=== PATIENT | female | born 1980 | race Caucasian/White ===

== ENCOUNTER 2023-12-18 05:25 | Emergency (ER) | payer MEDICAID, OTHER ==
[~2023-12-18] VITALS: Ht 157.5 cm; Wt 59.0 kg
[2023-12-18 05:30] VITALS: TEMP 98
[2023-12-18 06:13] VITALS: PULSE 91; RESP 15; O2SAT 99
[2023-12-18] MEDS: IPRATROPIUM BROMIDE (0.02%) 0.5MG/2.5ML NEB HHN STA (06:13)
[2023-12-18] MEDS: ALBUTEROL (0.083%) 2.5MG/3ML NEB HHN STA (06:13)
[2023-12-18] MEDS: METHYLPREDNISOLONE SOD SUCC 125MG/2ML (ACT-O-VIAL) IV STA (06:33)
[2023-12-18] MEDS: MAGNESIUM 2 G PREMIX 50 ML IV STA (06:33)
[2023-12-18 08:30] VITALS: BP 108/66; PULSE 92; RESP 18
[2023-12-18] MEDS ORDERED: P50 PO (08:45)
[2023-12-18] MEDS ORDERED: ALBU18HF2 IH (08:45)
[2023-12-18] MEDS ORDERED: ALBU05 NEB (08:45)
[2023-12-18] MEDS: KETOROLAC 30MG/ML VIAL IV ONE (09:01)
== END 2023-12-18 09:10 | disposition home or self-care (01) ==
LOC: ER 05:25
DX: J45.901 Unspecified asthma with (acute) exacerbation (principal)
CPT/HCPCS: 71045; 94644; 96365; 96375; 99285; J1885; J3475; J2930; Z7610 ×3

== ENCOUNTER 2024-08-22 10:39 | Emergency (ER) | payer MEDICAID ==
[~2024-08-22] VITALS: Ht 160 cm; Wt 76.0 kg
[~2024-08-22 10:39] MED LIST: ALBU05 NEB; ALBU18HF2 IH; P50 PO
[2024-08-22 10:42] VITALS: TEMP 98.3
[2024-08-22] MEDS: DEXAMETHASONE 4MG TABLET PO SCH (11:29)
[2024-08-22] MEDS: DEXAMETHASONE 1MG TABLET PO ONE (11:30)
[2024-08-22 11:50] VITALS: PULSE 96; RESP 16; O2SAT 97
[2024-08-22] MEDS: IPRATROPIUM BROMIDE (0.02%) 0.5MG/2.5ML NEB HHN STA (11:50)
[2024-08-22] MEDS: ALBUTEROL (0.083%) 2.5MG/3ML NEB HHN SCH (11:50)
[2024-08-22 13:40] VITALS: BP 112/67; PULSE 96; RESP 12; O2SAT 99
== END 2024-08-22 13:59 | disposition home or self-care (01) ==
LOC: ER 11:35
DX: J45.901 Unspecified asthma with (acute) exacerbation (principal)
CPT/HCPCS: 71045; 94640; 99291; J8540; Z7610

== ENCOUNTER 2024-09-17 13:39 | Emergency (ER) | payer MEDICAID, OTHER ==
[~2024-09-17] VITALS: Ht 162.6 cm; Wt 73.0 kg
[2024-09-17 13:41] VITALS: BP 119/76; TEMP 98.5
[2024-09-17] MEDS ORDERED: SODIUM CHLORIDE 0.9% 1,000 ML IV ONE (15:15)
[2024-09-17] MEDS: PREDNISONE 20MG TABLET PO STA (15:47)
[2024-09-17] MEDS: IPRATROPIUM BROMIDE (0.02%) 0.5MG/2.5ML NEB HHN STA (15:49)
[2024-09-17 15:50] VITALS: PULSE 99; RESP 23; O2SAT 92
[2024-09-17] MEDS: ALBUTEROL (0.083%) 2.5MG/3ML NEB HHN STA (15:50)
[2024-09-17 16:48] LABS: CHLORIDE 107 mEq/L (98-107); POTASSIUM 3.6 mEq/L (3.5-5.1); SODIUM 140 mEq/L (136-145)
[2024-09-17 16:49] LABS: CARBON DIOXIDE 24 mEq/L (21-32)
[2024-09-17 16:53] LABS: BASOPHILS % 0.7 % (0.0-2.0); EOSINOPHILS % 1.2 % (0.0-5.0); HEMATOCRIT. 45.9 % (36.0-48.0); HEMOGLOBIN. 15.2 g/dL (12.0-16.0); LYMPHOCYTES % 19.3 % (20.0-50.0); MEAN CORPUSCULAR HEMOGLOBIN 31.8 pg (28.0-32.0); MEAN CORPUSCULAR HGB CONC 33.2 g/dL (31.0-37.0); MEAN CORPUSCULAR VOLUME 95.7 fL (81.0-99.0); MEAN PLATELET VOLUME 7.5 fl (7.4-10.4); MONOCYTES % 10.3 % (2.0-8.0); NEUTROPHILS % 68.5 % (40.0-76.0); PLATELET 232 x1000/uL (130-400); RED BLOOD CELL COUNT 4.79 mill/uL (4.2-5.4); RED CELL DISTRIBUTION WIDTH 12.7 % (11.6-14.6); WHITE BLOOD COUNT 7.4 x1000/uL (4.5-11.0)
[2024-09-17 16:54] LABS: CREATININE 0.8 mg/dL (0.6-1.0); GLUCOSE 99 mg/dL (70-105); UREA NITROGEN BLOOD 8 mg/dL (9-23)
[2024-09-17 16:57] LABS: ALANINE AMINOTRANSFERASE 43 IU/L (10-49); ALBUMIN 4.6 g/dL (3.2-4.8); ASPARTATE AMINOTRANSFERASE 42 IU/L (<34); BILIRUBIN DIRECT 0.2 mg/dL (<=3.0); BILIRUBIN TOTAL 0.7 mg/dL (0.1-1.0); PROTEIN TOTAL 7.9 g/dL (6.0-8.3)
[2024-09-17] MEDS ORDERED: ALBUTEROL (0.083%) 2.5MG/3ML NEB HHN SCH (17:15)
[2024-09-17 17:27] LABS: HCG SCREEN NEGATIVE
[2024-09-17] MEDS ORDERED: ALBU18HF2 IH (18:41)
[2024-09-17] MEDS ORDERED: P50 MT (18:42)
== END 2024-09-17 19:45 | disposition home or self-care (01) ==
LOC: ER 13:39 → EDBEDREQ 15:11 → CANBEDREQ 18:51 → ER 19:45
DX: J45.901 Unspecified asthma with (acute) exacerbation (principal); Z79.899 Other long term (current) drug therapy
CPT/HCPCS: 80076; 80048; 84703; 83735; 85025; 36415; 71045; 99284; J7512; Z7610; J7030